=== PATIENT | female | born 1975 | race Caucasian/White ===

== ENCOUNTER 2018-01-22 22:29 | Inpatient (IN) | payer OTHER, MEDICAID ==
[~2018-01-22] VITALS: Ht 162.6 cm; Wt 92.6 kg
[2018-01-22 22:35] VITALS: Ht 162.6 cm; Wt 92.6 kg
[2018-01-23 04:36] VITALS: BP 135/71
[2018-01-23 04:38] LABS: T3 TOTAL 1.37 ng/mL
[2018-01-23 04:39] LABS: CHOLESTEROL/HDL RATIO 3.8; MAGNESIUM 1.9 mg/dL (1.8-2.4); PHOSPHOROUS 3.1 mg/dL (2.5-4.9)
[2018-01-23 04:40] LABS: FREE T4 1.18 ng/dL (0.76-1.46); T4(THYROXINE) 8.7 ug/dL (4.7-13.3)
[2018-01-23 08:26] VITALS: BP 140/87
[2018-01-23 09:57] LABS: microscopic required? NO
[2018-01-23 10:09] LABS: UA SPECIFIC GRAVITY 1.015 (1.005-1.035); urine erythrocyte NEGATIVE (NEGATIVE)
[2018-01-23] MEDS ORDERED: MOR2I IV (11:03)
[2018-01-23] MEDS ORDERED: APAP/HYDROCODON1 T13 PO (11:03)
[2018-01-23] MEDS ORDERED: ZOFI IV (11:04)
[2018-01-23] MEDS ORDERED: TYL325 PO (11:04)
[2018-01-23 13:04] VITALS: BP 120/64
[2018-01-23 13:08] VITALS: BP 120/64
== END 2018-01-23 14:07 | disposition short-term general hospital (02) | DRG 563 ==
LOC: ED 22:29 → MU 01-23 02:32
PROVIDERS: Internal Medicine
DX: S42.351A Displaced comminuted fracture of shaft of humerus, right arm, initial encounter for closed fracture (principal); F17.210 Nicotine dependence, cigarettes, uncomplicated; Z68.33 Body mass index [BMI] 33.0-33.9, adult; W01.0XXA Fall on same level from slipping, tripping and stumbling without subsequent striking against object, initial encounter; Y93.E9 Activity, other interior property and clothing maintenance; Y92.009 Unspecified place in unspecified non-institutional (private) residence as the place of occurrence of the external cause
CPT/HCPCS: 83880; 84439; J2270; J2405; J2704; J7030; Q0092

== ENCOUNTER 2018-02-09 13:38 | Emergency (ER) | payer OTHER, MEDICAID ==
[~2018-02-09] VITALS: Ht 162.6 cm; Wt 89.8 kg
[~2018-02-09 13:38] MED LIST: APAP/HYDROCODON1 T13 PO; MOR2I IV; TYL325 PO; ZOFI IV
[2018-02-09 13:59] VITALS: Ht 162.6 cm; Wt 89.8 kg
[2018-02-09 16:40] VITALS: BP 144/88
== END 2018-02-09 16:40 | disposition home or self-care (01) ==
LOC: ED 13:38
DX: S42.391D Other fracture of shaft of right humerus, subsequent encounter for fracture with routine healing (principal); W18.39XD Other fall on same level, subsequent encounter; Z98.51 Tubal ligation status; Z98.890 Other specified postprocedural states
CPT/HCPCS: J2270; Q0092; Q0162